=== PATIENT | female | born 1975 | race Asian ===

== ENCOUNTER 2020-07-03 03:32 | Emergency (ER) | payer OTHER ==
[2020-07-03 03:58] VITALS: BP 144/82; PULSE 93; TEMP 98.4; BMI 24.3
[2020-07-03] MEDS ORDERED: DIPHTH,PERTUSS(ACELL),TET 0.5 ML DISP.SYRIN IM ONE (04:00)
== END 2020-07-03 05:17 | disposition home or self-care (01) ==
LOC: JER 03:32
PROC: 0HQEXZZ Repair Left Lower Arm Skin, External Approach (ICD-10-PCS; principal; 2020-07-03)
PROC: 3E0234Z Introduction of Serum, Toxoid and Vaccine into Muscle, Percutaneous Approach (ICD-10-PCS; 2020-07-03)
DX: S61.512A Laceration without foreign body of left wrist, initial encounter (principal)
CPT/HCPCS: 90471; 90715; 99284-25